=== PATIENT | female | born 1955 | race Caucasian/White ===

== ENCOUNTER 2019-08-15 03:15 | Inpatient (IN) | payer OTHER ==
[~2019-08-15] VITALS: Ht 165.1 cm; Wt 89.0 kg
[2019-08-15] VITALS (8 sets, daily range): BP systolic 117–225; BP diastolic 66–122
--- NOTE | ~2019-08-15 | HC ---
[facility] [place] [address] CONSULTATION Name: TITI FITCH Room #: 249-P ADM IN M.R.#: [id number] Admission: 08/15/19 Attend Phys: Al Alamo Discharge: Date of : 51 Report #: [id number] THIS REPORT FOR: cc: Peyton Garcia MD, Susan L. MD Al-Absi, Ahmed I. MD ~ CC: Al Garcia REASON FOR CONSULTATION: Acute kidney injury post-CABG. REASON FOR THE PRESENTATION: Chest pain and shortness of breath. HISTORY OF PRESENT ILLNESS: A 64-year-old with past medical history of hypertension, diabetes mellitus and hyperlipidemia. She presented to the hospital on 08/11/2019 with chest pain and shortness of breath. She was hypoxemic on her presentation. She had bilateral pulmonary infiltrate and was ruled out for COVID-19. Cardiac catheterization showed 3-vessel disease for which the Cardiothoracic Surgery was consulted. The patient ended up having CABG on 08/22/2019. Creatinine on the patient's presentation was 1.2 and had risen to 2.4 as of yesterday; however, it is beginning to improve and down to 1.4. The patient ran into hypotensive events and episodes on 08/22/2019; however, this seemed to have resolved. PAST MEDICAL HISTORY: 1. Hypertension. 2. Hyperlipidemia. 3. Diabetes mellitus. 4. Status post CABG. ALLERGIES: NORM INHIBITOR AND PENICILLIN. SOCIAL HISTORY: Denies drug or alcohol abuse. MEDICATIONS: 1. Metoprolol. 2. Irbesartan. 3. Triamterene. 4. Metformin. 5. Allopurinol. REVIEW OF SYSTEMS: GENERAL: No fever or chills. CARDIOVASCULAR: As expected, chest pain, post-sternotomy. PULMONARY: No cough or hemoptysis. GASTROINTESTINAL: No nausea or vomiting. GENITOURINARY: No frequency, no urgency. [facility] [address] [place] [address] CONSULTATION Name: TITI FITCH Room #: 249-P [facility].#: [id number] Admission: 08/15/19 Attend Phys: Al Alamo Discharge: Date of : 51 Report #: [id number] MUSCULOSKELETAL: No back pain, no morning stiffness. FAMILY HISTORY: Significant for hypertension. PHYSICAL EXAMINATION: GENERAL: She is alert, oriented, in no apparent distress. VITAL SIGNS: Temperature is 37.1, pulse rate is 77, blood pressure is 110/60. HEAD AND NECK: No jugular venous distention. She has central lines on the right IJ. CARDIOVASCULAR: Regular with no rub detected. CHEST: Decreased air entry bilaterally with chest tube in place. ABDOMEN: Soft, nontender. LOWER EXTREMITIES: No edema. LABORATORY DATA: Reviewed. The patient's creatinine is down to 1.8. Sodium is 133. White blood cell count is 12.3, hemoglobin is 8. Platelets 105. Urine output in the last 24 hours was 1,125. ASSESSMENT AND PLAN: 1. Acute kidney injury, post coronary artery bypass graft. 2. Mild hyponatremia. 3. Diabetes mellitus. 4. Hypertension. 5. Hyperlipidemia. 6. Her acute kidney injury was due to hypotension. This seems to be resolving. She does have hyponatremia and I will reformulate her IV fluids. 7. Creatinine seems to be trending down to where the patient's baseline. 8. Expect full recovery. By: [phone] Lazara Mcginnis MD /nt
[2019-08-15 03:37] LABS: BE(vivo) -4.3 mmol/L (-2 to +3); HCO3 22.8 mmol/L (22.0-26.0); PCO2 49.3 mmHg (35.0-45.0); PO2 236.4 mmHg (80.0-100.0); sO2 99.4 % (92.0-98.0)
[2019-08-15 03:38] LABS: pH 7.282 (7.360-7.450)
[2019-08-15 04:21] LABS: CALCIUM 8.7 mg/dL (8.5-10.1); CREATININE 1.5 mg/dL (0.6-1.0); POTASSIUM 3.9 mmol/L (3.5-5.1)
[2019-08-15 04:29] LABS: TROPONIN-I 0.1 ng/mL (<0.06)
[2019-08-15] MEDS ORDERED: TRIAMTERENE/HCT1 CA1 PO (04:34)
[2019-08-15] MEDS ORDERED: TOPROL XL50 MG PO (04:34)
[2019-08-15] MEDS ORDERED: ATORVASTATIN CA20 MG PO (04:35)
[2019-08-15] MEDS ORDERED: METFORMIN HCL500 MG PO (04:35)
[2019-08-15] MEDS ORDERED: ALLOPURINOL 30300 M1 PO (04:35)
[2019-08-15] MEDS ORDERED: KLOR-CON 10 ER10 MEQ PO (04:35)
[2019-08-15] MEDS ORDERED: IRBESARTAN150 MG PO (04:36)
[2019-08-15] MEDS ORDERED: TRESIBA FL200 UNIT/1 SUBQ (04:36)
[2019-08-15] MEDS ORDERED: OMEPRAZOLE40 MG PO (04:36)
[2019-08-15] MEDS ORDERED: NOVOLOG FL100 UNIT/M SUBQ (04:37)
[2019-08-15 04:44] LABS: ABSOLUTE NEUTROPHILS 12.2 thou/uL (1.4-8.2); BASOPHILS 0.4 % (0.0-2.0); EOSINOPHILS 0.9 % (0.0-3.0); HEMATOCRIT 40.1 % (37.0-47.0); LYMPHOCYTES 11.4 % (24.0-44.0); MCH 29.8 pg (26.0-34.0); MCHC 32.4 g/dL (28.0-37.0); MCV 91.8 fL (80.0-100.0); MONOCYTES 5.8 % (1.0-8.0); PLATELET COUNT 198 thou/uL (150-400); POLYS 81.5 % (36.0-66.0); RBC 4.37 mil/uL (4.20-5.00); RDW 15.2 % (10.5-14.5)
[2019-08-15 11:04] LABS: TROPONIN-I 2.55 ng/mL (<0.06)
[2019-08-15 11:19] LABS: CHOLESTEROL 139 mg/dL (<200); HDL CHOLESTEROL 33 mg/dL (>40); LDL CHOLESTEROL 76 mg/dL (<100); TC:HDL 4.2 Ratio (Not establshd); TRIGLYCERIDE 151 mg/dL (<150); VLDL 30 mg/dL (<40)
--- NOTE | 2019-08-15 11:54 | NUR ---
ASSUMED CARE PT SHIFT CHANGE. ASSESSMENT CHARTED.MEDS GIVEN PER MAR. PT ALERT AND ORIENTED.VSS. PT SOB OCCASIONALLY, O2 SATS WNL ON 4L. TX ORDERS RECEIVED AND ACKNOWLEDGED. REPORT GIVEN TO NURSE ON 3W. PT TRANSFERRED SUCCESSFULLY WITH ALL BELONGINGS.
[2019-08-15 13:15] LABS: URINE BILIRUBIN NEGATIVE (Negative); URINE BLOOD TRACE (Negative); URINE CLARITY CLEAR; URINE COLOR YELLOW; URINE GLUCOSE-RANDOM* NEGATIVE (Negative); URINE KETONES NEGATIVE (Negative); URINE LEUKOCYTES NEGATIVE (Negative); URINE NITRITE NEGATIVE (Negative); URINE PROTEIN (DIPSTICK) 2+ (Negative); URINE SPECIFIC GRAVITY 1.025 (1.005-1.035); URINE UROBILINOGEN 0.2 E.U./dl (0.2-1.0)
[2019-08-15 13:27] LABS: CASTS None Seen /LPF (None Seen); SQUAMOUS 4-10 Moderate /LPF (0-3); URINE RBC 0-2 Rare /HPF (0-2); URINE WBC 0-5 Rare /HPF (0-5)
[2019-08-15 13:28] LABS: CRYSTALS None Seen /LPF (None Seen)
--- NOTE | 2019-08-15 14:34 | NUR ---
ASSESSMENT: CM REVIEWED CHART AND SPOKE WITH PATIENT. PT WAS ADMITTED WITH SOB/CHEST PAIN. PT WAS TRANSFERED FROM TO DUE TO BEING TESTED FOR COVID 19. PT REPORTS SHE LIVES IN A HOUSE WITH HER SIGNIFICANT OTHER. PT REPORTS THAT SHE HAS 2 STEPS TO ENTER WITH NO HANDRAILS. PT REPORTS ONCE INSIDE SHE DOES NOT HAVE ANY STEPS. PT REPORTS BEING FULLY INDEPENDENT WITH ADLS AND AMBULATION. PT IS CURRENTLY ON 4L OF OXYGEN AND DOES NOT HAVE OXYGEN AT HOME. PT DENIES HAVING HH IN THE PAST OR BEING TO A SNF. CM DISCUSSED ROLE. PT DOES NOT ANTICIPATE TO HAVE ANY NEEDS. CM WILL CONTINUE TO MONITOR OXYGEN NEEDS. CM WILL CONTINUE TO FOLLOW TO ASSIST NEEDED.
--- NOTE | 2019-08-15 19:51 | NUR ---
PT NOW DENIES CHEST PAIN...NITRO GTT DC'D AND NITRO PASTE ORDERED...WILL MONITOR..
[2019-08-16 00:06] LABS: GLYCOHEMOGLOBIN (HGB A1C) 9.1 % (4.8-5.6)
[2019-08-16 03:20] VITALS: BP 118/69
[2019-08-16 05:34] LABS: ABSOLUTE NEUTROPHILS 6.8 thou/uL (1.4-8.2); BASOPHILS 0.7 % (0.0-2.0); EOSINOPHILS 1.4 % (0.0-3.0); HEMATOCRIT 34.3 % (37.0-47.0); HEMOGLOBIN 11.5 gm/dL (12.0-15.0); LYMPHOCYTES 27.2 % (24.0-44.0); MCH 30.3 pg (26.0-34.0); MCHC 33.4 g/dL (28.0-37.0); MCV 90.7 fL (80.0-100.0); MONOCYTES 9.7 % (1.0-8.0); PLATELET COUNT 200 thou/uL (150-400); RBC 3.78 mil/uL (4.20-5.00); RDW 15.4 % (10.5-14.5); WBC 11.2 thou/uL (4.0-11.0)
[2019-08-16 05:47] LABS: ALBUMIN 2.9 g/dL (3.4-5.0); CALCIUM 8.7 mg/dL (8.5-10.1); CREATININE 1.4 mg/dL (0.6-1.0); PHOSPHORUS 4.5 mg/dL (2.5-4.9); POTASSIUM 4.2 mmol/L (3.5-5.1)
--- NOTE | 2019-08-16 06:20 | NUR ---
ISOLATION PRECAUTIONS MAINTAINED FOR R/O OF COVID-19. FOLLOW POC WITH NITRO PASTE. DURING ASSESSMENT PT HAD COMPLAINTS OF HEADACHE. GAVE TYLENOL WITH GOOD RESULTS. OVER NEXT TWO SCHEDULED DOSES OF NITRO, TYLENOL GIVEN TO PREVENT FURTHER HEADACHES. PT UP TO BSC. PT STILL ON 4L NASAL CANNULA. VSS, AFEBRILE, AND TELE SHOWS SR WITH A BBB. HOURLY ROUNDING.
[2019-08-16 07:43] VITALS: BP 145/82
[2019-08-16 08:32] VITALS: BP 145/82
--- NOTE | 2019-08-16 10:30 | NUR ---
PT CARE ASSUMED AT 0700. A&Ox4. UP AT NIKHIL BUT STILL WEAK. PT IS DOWN TO 2L AND TOLERATING WELL WITH SATTING AT 94%. RUNNING AT SINUS RYTHM. IV ON L. INFILTRATED WITH REDNESS AND EDEMA. PT IS A DAILY WEIGHT. ACHS WITH COVERAGE NEEDED. ON ELECTROLYTE PROTOCOL. WHEN GIVING NITROPASTE GIVE WITH TYLENOL FOR HEADACHE. CHEST X-RAY WAS DONE SEE RESULTS. PT IS REFUSING SCD'SON DVT PROTOCOL. FLUID RESTRICTION OF 1750ML. PT WILL HAVE ECHO AND ANGIOGRAPH ON MONDAY IF COVID TEST COMES BACK NEGATIVE. CARDIAC ON CASE. PT/OT ON CASE. CALL LIGHT IN REACH. WILL CONTINUE TO MONITOR.
[2019-08-16 11:43] VITALS: BP 145/82
--- NOTE | 2019-08-16 12:00 | NUR ---
SW reviewed chart and spoke [facility] nursing and attending physician. Pt remains in Enhanced Isolation to r/o COVID-19. Pt on 2L of continuous O2. Cardiology is following. Pt to have echo/angio on Monday per cardiology if COVID-19 is negative. Plan is for pt to discharge home when medically stable. LATISHA is following to assist as needed with discharge planning.
[2019-08-16 17:16] VITALS: BP 151/89
[2019-08-16 20:38] VITALS: BP 162/88
[2019-08-17 02:20] VITALS: BP 170/12; BP 170/122
--- NOTE | 2019-08-17 03:04 | NUR ---
ASSUMED CARE FOR PT AT 1845. PT OXYGEN HAS BEEN TITRATED DOWN TO 2L VIA NASAL CANNULA. VSS STABLE, BLOOD PRESSURE MAINTAINING WELL WITHIN NORMS, AND OXYGEN SATURATION IS 92%, REMOVED PIV IN LEFT HAND. NEW ORDERS FROM CARDIOLOGY FOR MONDAY AM ANGIOGRAM WITH INSTRUCTIONS ON MEDICATIONS TO BE GIVEN PRIOR TO PROCEDURE. ORDER ALSO STATES TO HAVE NEW IV INSERTED ON RIGHT ARM WITH A 20GA OR LARGER, WITH INSTRUCTIONS THAT NO IVPB ANTIBIOTICS TO BE GIVEN THROUGH IT PRIOR. WILL CONTINUE TO MONITOR AND ASSESS.
--- NOTE | 2019-08-17 03:08 | NUR ---
DURING HOURLY ROUNDS, AT 0245 PT WAS AWAKENED WITH CHEST PAIN. VITALS TAKEN AND BP 171/121, 18 RESP, 74hr, AND 92% O2. CALLED UTILITY SPRAY OPERATOR AND GOT PRN ORDER FOR MORPHINE 4MG Q4. FOLLOWED UP WITH PT AND SHE STATES CHEST PAIN HAS GONE AWAY, BP 168/71. WILL CONTINUE TO MONITOR.
[2019-08-17 04:27] VITALS: BP 140/78
--- NOTE | 2019-08-17 06:51 | NUR ---
2100-PT MAKING PROGRESS WITH BREATHING AND LESS DEPENDENCE ON NASAL CANUALA. OXYGEN WAS TITRATED TO 2L WITH 93%. VSS, BLOOD PRESSURE MAINTAINING WELL. REMOVED PIV IN LEFT HAND. NEW ORDERS FROM CARDIOLOGY FOR MONDAY AM FOR ANGIOGRAM WITH INSTRUCTIONS ABOUT MEDICATIONS AND TO HAVE NEW IV INSERTED ON RIGHT ARM WITH 20GA OR LARGER. THIS IV IS NOT TO HAVE ANY ANTIBIOTICS GIVEN THROUGH IT. WILL CONTINUE TO MONITOR AND ASSESS.
[2019-08-17 08:30] VITALS: BP 145/77
[2019-08-17 14:50] VITALS: BP 150/69
--- NOTE | 2019-08-17 16:34 | NUR ---
PT. ARRIVED AT THE FLOOR AROUND 1530; AOX4; NO C/O PAIN; EDUCATED ABOUT FALL PREVENTIONS; ST. UNDERSTANDING; SR ON THE MONITOR; ST. ABLE TO AMBULATE WITHOUT ASSISTANCE; REQUESTED TO TAKE A SHOWER; PHYSICIAN PAGED; NO ANSWER BACK YET; PT. REQUESTED TOWELS & FACE RACKS TO WASH UP; NO C/O CP; MONITORING; ASSESSMENT CHARGED; FOLLOWING POC; WILL PASS ON REPORT;
--- NOTE | 2019-08-17 17:33 | NUR ---
ASSUMED CARE 0700. ALERT X4 FROM HOME. DENIES CHEST PAIN, DENIES SOB, NSR ON TELE. NEG COVID-19 RESULTS. UP AB NIKHIL TO BATHROOM NO BM NOTED VOID 800CC PRIOR TO MOVING TO 208. PROGRESSING TOWARDS GOALS. REPORT GIVEN TO LAKEISHA EMMANUEL RN.
[2019-08-17 20:32] VITALS: BP 146/73
[2019-08-18 04:30] VITALS: BP 143/72
--- NOTE | 2019-08-18 05:07 | NUR ---
ASSESSMENT DOCUMENTED.PT BEEN RESTING IN NO ACUTE DISTRESS.A/OX4.VSS.NO C/O CHEST PAIN OR ANY DISTRESS.NSR ON MONITOR.POC ISTO HAVE CARDIAC ROSANNE IN AM.WILL CONT TO MONITOR PER POC.
[2019-08-18 05:29] LABS: CALCIUM 9.2 mg/dL (8.5-10.1); CREATININE 1.3 mg/dL (0.6-1.0); PHOSPHORUS 4.5 mg/dL (2.5-4.9); POTASSIUM 4.2 mmol/L (3.5-5.1)
[2019-08-18 05:32] LABS: TROPONIN-I 4.5 ng/mL (<0.06)
[2019-08-18 07:52] VITALS: BP 161/72
[2019-08-18 11:29] VITALS: BP 146/63
[2019-08-18 15:24] VITALS: BP 137/81
--- NOTE | 2019-08-18 18:44 | NUR ---
ASSESSMENT DOCUMENTED, DENIES ANY CP OR DISCOMFORT. VSS AND WILL CONTIUE TO MONITOR.
[2019-08-18 19:54] VITALS: BP 165/71
[2019-08-19] VITALS (13 sets, daily range): BP systolic 131–172; BP diastolic 58–79
[2019-08-19 05:14] LABS: HEMATOCRIT 34.3 % (37.0-47.0); HEMOGLOBIN 11.5 gm/dL (12.0-15.0); MCH 30.5 pg (26.0-34.0); MCHC 33.6 g/dL (28.0-37.0); MCV 90.9 fL (80.0-100.0); RBC 3.78 mil/uL (4.20-5.00); RDW 15.1 % (10.5-14.5); WBC 8.5 thou/uL (4.0-11.0)
[2019-08-19 05:24] LABS: CREATININE 1.2 mg/dL (0.6-1.0); POTASSIUM 3.7 mmol/L (3.5-5.1)
--- NOTE | 2019-08-19 06:01 | NUR ---
ASSESSMENTS CHARTED, MEDS GIVEN CHARTED. PATIENT TRANSFERED FROM 3RD FLOOR AFTER INGRAM TEST CAME BACK NEGATIVE. CHEST PAIN ALLEVIATED WITH NITRO PASTE. IS SCHEDULED FOR [facility] THIS MORNING. DAY SHIFT NURSE REMOVED NITRO PASTE AT END OF SHIFT. AROUND 2230 PATIENT C/O CHEST PAIN/PRESSURE 11/28. REPLACED NITRO PATCH BLOOD PRESSURE WAS 196/87, BLOOD PRESSURE CAME DOWN AND PRESSURE WENT DOWN. SPOKE WITH SENIOR SALES MANAGER WHO GAVE ORDER IF BP WENT BACK UP OVER 180 SBP. PATIENT UP AT NIKHIL IN ROOM. PLAN OF CARE IS TO VISIT [facility], HAVE ECHO, CONTINUE LASIX THERAPY AND ANTIBIOTIC THERAPY.
--- NOTE | 2019-08-19 09:29 | CATHLAB ---
[facility] [place] [address] INVASIVE PROCEDURE REPORT Name: TITI FITCH Room #: 208-P ADM IN M.R.#: [id number] Admission: 08/15/19 Attend Phys: Al Long Cally Discharge: Date of : 51 Report #: [id number] THIS REPORT FOR: cc: Peyton Garcia MD, Susan L. MD Lundgren, Craig H. MD [facility] ~ APPROVED REPORT Study performed: 08/19/2019 07:23:47 Patient Details Patient Status: In-Patient Room #: The patient is a 64 year-old female Event Personnel Cb Alcaraz Machine Plate Stacker, Lucille Thao RN RN, Kadi Gtz RTR, Norberto López Roberta Monitor Procedures Performed Art Access - R femoral artery* Left Heart Cath w/or w/o Coronaries [id number] [facility] Hemostasis w/ Mynx 37059 Initial Mod Sed Same Phys/QHP Gr5y [id number] 87471 Mod Sed Same Phys/QHP Ea [id number] Indication Chest pain Procedure Narrative The Right Groin^ was infiltrated with 1% Lidocaine subcutaneous anesthesia. A PINNACLE 6FR Sheath #[id number] sheath was inserted into the RFA 6F^. Coronary angiography was performed using coronary diagnostic catheters. The right coronary system was accessed and visualized with a JR4 catheter. The left coronary system was accessed and visualized with a JL4 catheter. Left ventriculogram was performed in 30 degree projection. NO LV WAS PERFORMED Intraoperative Conscious Sedation Sedation start time: 755 Case end Time: 829 Fentanyl --50 mcg Versed mg Fluoro Time: 1.16 minutes Dose: DAP 3609.10 cGycm2 463 mGy Contrast Type and Amount: Omnipaque 80 ml [facility] [place] [address] [place] [address] INVASIVE PROCEDURE REPORT Name: FITCHBRENNACARISSA Room #: 208-[facility] IN ..#: [id number] Admission: 08/15/19 Attend Phys: Al Purcell Discharge: Date of : 51 Report #: [id number] Coronary Angiography The patient's coronary anatomy is co- dominant. Diagnostic Cath Left Main 20 to 30% left main plaquing LAD 70% ostial LAD stenosis. 95% proximal, cleft-like stenosis. 75% mid LAD stenosis with moderate diffuse plaquing distally Diagonal 1 Large first diagonal branch with severe proximal stenosis 85% OM1 Mild plaquing OM2 99% proximal OM 2 stenosis L PDA Moderate proximal posterior descending branch stenosis Right Coronary 90% mid right coronary stenosis. 85% distal right coronary stenosis Complex collateralization of the distal right coronary from the codominant circumflex Left Ventriculography Left Ventriculography was not performed. Hemodynamics The aortic pressure is 198/87 mmHg with a mean of 97 mmHg. The left ventricular pressure is 208/10 mmHg with a mean of mmHg. The left ventricular end diastolic pressure is 32 mmHg. Conclusion 1. No LV gram performed. Elevated left heart pressures 2. Mild left main plaquing 3. Severe multivessel coronary disease Recommendations CABG <ELECTRONICALLY SIGNED> By: Cb Alcaraz MD, FACC 08/19/19926 6 6 Cb Alcaraz MD, FACC /INF
--- NOTE | 2019-08-19 10:30 | 2DMMODE ---
[facility] [place] [address] 2 D/M-MODE ECHOCARDIOGRAM Name: TITI FITCH Room #: 208-P ADM IN M.R.#: [id number] Admission: 08/15/19 Attend Phys: Al Alamo Discharge: Date of : 51 Report #: [id number] THIS REPORT FOR: cc: Peyton Garcia MD,Cb Reyes MD, MD [facility] ~ APPROVED REPORT Study performed: 08/19/2019 09:38:11 EXAM: Comprehensive 2D, Doppler, and color-flow Echocardiogram Patient Location: Bedside Room #: 208 Status: routine BSA: 1.93 HR: 85 bpm BP: 164/69 mmHg Rhythm: NSR Other Information Study Quality: Adequate Technically limited study due to inability to position patient (post cath). Indications Congestive Heart Failure Diabetes CAD Hypertension/HDD HLD 2D Dimensions RVDd: 28.25 mm IVSd: 12.44 (7-11mm) LVOT Diam: 20.94 (18-24mm) LVDd: 46.55 mm PWd: 12.36 (7-11mm) Ascending Ao: 28.70 (22-36mm) LVDs: 33.66 (25-40mm) Aortic Root: 28.91 mm IVC: 20.00 mm Volumes Left Atrial Volume (Systole) Single Plane 4CH: 77.50 mL Single Plane 2CH: 42.39 mL LA ESV Index: 31.00 mL/m2 [facility] [address] [place] [address] 2 D/M-MODE ECHOCARDIOGRAM Name: JODY FITCHIan Room #: 208-P [facility] IN M.R.#: [id number] Admission: 08/15/19 Attend Phys: Al Purcell Discharge: Date of : 51 Report #: [id number] Aortic Valve AoV Peak Cortes.: 1.79 m/s AO Peak Gr.: 12.78 mmHg LVOT Max P.78 mmHg LVOT Max V: 1.09 m/s JETT Vmax: 2.11 cm2 Mitral Valve E/A Ratio: 1.2 MV Decel. Time: 122.83 ms MV E Max Cortes.: 1.07 m/s MV A Cortes.: 0.88 m/s MV PHT: 35.62 ms IVRT: 86.51 ms Pulmonary Valve PV Peak Cortes.: 1.13 m/s PV Peak Gr.: 5.14 mmHg Pulmonary Vein P Vein S: 0.69 m/s P Vein A: 0.33 m/s P Vein D: 0.41 m/s P Vein A Dur.: 95.2 msec P Vein S/D Ratio: 1.68 Tricuspid Valve RAP Estimate: 5.00 mmHg Left Ventricle The left ventricle is normal size. There is normal LV segmental wall motion. Mild concentric left ventricular hypertrophy. Left ventricular systolic function is at the lower limits of normal LVEF is 50%. Moderate diastolic dysfunction is present (pseudonormal filling). Right Ventricle The right ventricle is normal size. The right ventricular systolic function is normal. Atria The left atrium size is normal. The right atrium size is normal. Aortic Valve The aortic valve is mildly sclerotic. No aortic regurgitation is present. There is no aortic valvular stenosis. Mitral Valve The mitral valve is normal in structure. There is no mitral valve [facility] [address] [place] [address] 2 D/M-MODE ECHOCARDIOGRAM Name: JODY FITCHIan Room #: 208-P ADM IN M.R.#: [id number] Admission: 08/15/19 Attend Phys: Al Purcell Discharge: Date of : 51 Report #: [id number] regurgitation noted. No evidence of mitral valve stenosis. Tricuspid Valve The tricuspid valve is normal in structure. There is no tricuspid valve regurgitation noted. Unable to assess PA pressure. Pulmonic Valve The pulmonary valve is normal in structure. There is no pulmonic valvular regurgitation. Great Vessels The aortic root is normal in size. IVC is normal in size and collapses >50% with inspiration. Pericardium There is no pericardial effusion. <Conclusion> Left ventricular systolic function is at the lower limits of normal LVEF is 50%. Moderate diastolic dysfunction is present (pseudonormal filling). The aortic valve is mildly sclerotic. No aortic regurgitation or stenosis The mitral valve is normal in structure. No mitral valve regurgitation. Unable to assess pulmonary artery pressure. There is no pericardial effusion. <ELECTRONICALLY SIGNED> By: Cb Alcaraz MD, FACC 08/19/19 1028 1028 1028 Cb Alcaraz MD, FACC /INF
[2019-08-19 13:31] LABS: ABSOLUTE NEUTROPHILS 5.9 thou/uL (1.4-8.2); BASOPHILS 0.5 % (0.0-2.0); EOSINOPHILS 1.7 % (0.0-3.0); HEMATOCRIT 38.7 % (37.0-47.0); HEMOGLOBIN 12.7 gm/dL (12.0-15.0); LYMPHOCYTES 19.1 % (24.0-44.0); MCH 29.8 pg (26.0-34.0); MCHC 32.8 g/dL (28.0-37.0); MCV 90.8 fL (80.0-100.0); MONOCYTES 8.3 % (1.0-8.0); PLATELET COUNT 233 thou/uL (150-400); POLYS 70.4 % (36.0-66.0); RBC 4.26 mil/uL (4.20-5.00); RDW 15.2 % (10.5-14.5); WBC 8.3 thou/uL (4.0-11.0)
[2019-08-19 13:35] LABS: CALCIUM 9.5 mg/dL (8.5-10.1); CREATININE 1.2 mg/dL (0.6-1.0); POTASSIUM 3.7 mmol/L (3.5-5.1)
--- NOTE | 2019-08-19 13:39 | NUR ---
Patient with consult for Dr Garcia. Not medically stable for dc. Cont plan for home at dc. casemgt following
[2019-08-19 13:41] LABS: ALBUMIN 3.3 g/dL (3.4-5.0); PROTIME 10.7 Seconds (9.3-11.4); TOTAL BILIRUBIN 0.7 mg/dL (<0.1-1.0); TOTAL PROTEIN 7.1 g/dL (6.4-8.2)
--- NOTE | 2019-08-19 18:16 | NUR ---
ASSESSMENT DOCUMENTED, ALERT AND ORIENTED X4. VSS AND AFEBRILE. DENIES CP ,NITRO PLACED PER ORDERS, AND MEDICATED WITH TYLENOL FOR HEADACHE. CATHED TO DAY, POST CARDIAC CATH ASSESSMENT WITH VS DONE, PATIENT WAS EMOTIONAL POST CATH FINDINGS, AND VISITED BY CARDIAC REHAB NURSE. S/B DR LIMON AND HIS TEAM, AND PATIENT CONCERNS AND QUESTIONS ADDRESSED BY THE TEAM. AND WILL CONTINUE WITH POC
[2019-08-19 18:32] LABS: URINE BILIRUBIN NEGATIVE (Negative); URINE BLOOD NEGATIVE (Negative); URINE CLARITY CLEAR; URINE COLOR YELLOW; URINE GLUCOSE-RANDOM* NEGATIVE (Negative); URINE KETONES NEGATIVE (Negative); URINE LEUKOCYTES NEGATIVE (Negative); URINE NITRITE NEGATIVE (Negative); URINE PROTEIN (DIPSTICK) 2+ (Negative); URINE UROBILINOGEN 0.2 E.U./dl (0.2-1.0)
[2019-08-19 18:39] LABS: SQUAMOUS 0-3 Few /LPF (0-3)
[2019-08-19 18:40] LABS: BACTERIA None Seen /HPF (None Seen); CASTS None Seen /LPF (None Seen); CRYSTALS None Seen /LPF (None Seen); URINE RBC None Seen /HPF (0-2); URINE WBC 0-5 Rare /HPF (0-5)
[2019-08-20 01:07] LABS: GLYCOHEMOGLOBIN (HGB A1C) 8.9 % (4.8-5.6)
--- NOTE | 2019-08-20 03:37 | NUR ---
A/O X 4.UP INDEPENDENTLY.DENIES PAIN AND SOB.RIGHT GROIN DRESSING C/D/I.DENIES ANY CONCERNS.MONITOR SHOWS SR.POC CONTINUED.
[2019-08-20 04:25] VITALS: BP 160/64
[2019-08-20 08:45] VITALS: BP 157/76
[2019-08-20 08:45] LABS: CALCIUM 9.6 mg/dL (8.5-10.1); CREATININE 1.2 mg/dL (0.6-1.0); POTASSIUM 3.9 mmol/L (3.5-5.1)
[2019-08-20 11:35] VITALS: BP 133/55
[2019-08-20 16:25] VITALS: BP 133/58
--- NOTE | 2019-08-20 17:59 | NUR ---
ASSESSMENT DOCUMENTED, DENIES ANY CP AND WALKED THE HALLWAYS X2. AND WILL CONTINUE WITH POC.
[2019-08-20 20:32] VITALS: BP 132/56
[2019-08-21 00:42] VITALS: BP 148/72
[2019-08-21 05:05] VITALS: BP 135/63
--- NOTE | 2019-08-21 05:10 | NUR ---
ASSESSMENTS CHARTED, MEDS GIVEN CHARTED. PATIENT RESTING IN ROOM DURING SHIFT. IS WAITING UNTIL MONDAY FOR CABG. MAINTAINING NITRO PASTE TO PREVENT CHEST PAIN. ON 1 LITER NASAL CANULA. ON LASIX THERAPY. EDEMA HAS RESOLVED IN LOWER EXTREMITIES. CHEST XRAY SHOWED SIGNIFICANT IMPROVEMENT IN INTERSTITIAL INFILTRATES. UP AT NIKHIL IN ROOM. FALL PRECAUTIONS IN PLACE. DENIED PAIN DURING SHIFT.
[2019-08-21 06:17] LABS: CALCIUM 9.2 mg/dL (8.5-10.1); CREATININE 1.2 mg/dL (0.6-1.0); MAGNESIUM 1.7 mg/dL (1.8-2.4); POTASSIUM 3.7 mmol/L (3.5-5.1)
[2019-08-21 07:30] VITALS: BP 132/62
[2019-08-21 11:30] VITALS: BP 134/59
--- NOTE | 2019-08-21 13:46 | NUR ---
Tenative plan for CABG in am. Casemgt followinf for dc planning.
--- NOTE | 2019-08-21 14:48 | NUR ---
ASSESSMENT CHARTED. PT ALERT AND ORIENTED. VSS. DENIED HAVING PAIN OR DISCOMFORT. UP IN THE CHAIR THIS AM. SHOWERED THIS MORNING. NEW ORDERS NOTED. NPO AFTER MIDNIGHT FOR CABG IN AM. CONSENT SIGNED. WILL CONTINUE TO MONITOR.
[2019-08-21 16:30] VITALS: BP 138/63
[2019-08-21 20:13] VITALS: BP 148/62
[2019-08-22] VITALS (8 sets, daily range): BP systolic 89–186; BP diastolic 53–80
--- NOTE | 2019-08-22 04:10 | NUR ---
ASSESSMENT DOCUMENTED.PT BEEN RESTING IN NO ACUTE DISTRESS.A/OX4.VSS.PT TO HAVE CABG THIS AM.DENIES ANY NEEDS.NPO AFTER MIDNOC.PREOPE CHECKLIST INITIATED.SHOWERS PER ORDERS.PT DENIES PAIN OR ANY DISTRESS AT THIS TIME.I WILL CONT TO MONITOR PER POC.
[2019-08-22 05:40] LABS: CALCIUM 9.2 mg/dL (8.5-10.1); CREATININE 1.2 mg/dL (0.6-1.0); MAGNESIUM 1.8 mg/dL (1.8-2.4); POTASSIUM 3.7 mmol/L (3.5-5.1)
[2019-08-22 12:41] LABS: HEMOGLOBIN 12.2 gm/dL (12.0-15.0); MCH 30.5 pg (26.0-34.0); MCHC 33.1 g/dL (28.0-37.0); MCV 92.2 fL (80.0-100.0); RBC 4.01 mil/uL (4.20-5.00); RDW 15.1 % (10.5-14.5); WBC 10.6 thou/uL (4.0-11.0)
[2019-08-22 12:52] LABS: APTT 28.2 Seconds (24.5-32.8); FIBRINOGEN 505.1 mg/dL (210-360); PROTIME 10.5 Seconds (9.3-11.4)
[2019-08-22 13:26] LABS: HEMATOCRIT 23.7 % (37.0-47.0); MCH 30.1 pg (26.0-34.0); MCHC 32.8 g/dL (28.0-37.0); MCV 91.7 fL (80.0-100.0); RBC 2.59 mil/uL (4.20-5.00); RDW 15.1 % (10.5-14.5); WBC 19.3 thou/uL (4.0-11.0)
[2019-08-22 13:29] LABS: HEMOGLOBIN 7.8 gm/dL (12.0-15.0)
--- NOTE | 2019-08-22 13:36 | NUR ---
Nutrition: Consult received. Pt having CABG today. RD will followup to determine education needs when closer to D/C.
[2019-08-22 13:38] LABS: APTT 26.6 Seconds (24.5-32.8); INR 1.4
[2019-08-22 14:25] LABS: POC BE 3 mmol/L (-2.0 to +3.0); POC CA IONIZED 4.6 mg/dL (4.5-5.3); POC GLUCOSE 224 mg/dL (70-99); POC HCO3 26.4 mmol/L (22.0-26.0); POC HEMOGLOBIN 11.2 g/dL (12.0-15.0); POC POTASSIUM 4.5 mmol/L (3.5-5.1); POC SODIUM 138 mmol/L (136-145); POC pCO2 37.1 mmHg (35.0-45.0); POC pH 7.461 (7.360-7.450)
[2019-08-22 14:25] LABS: POC BE -3 mmol/L (-2.0 to +3.0); POC CA IONIZED 4.5 mg/dL (4.5-5.3); POC GLUCOSE 175 mg/dL (70-99); POC HCO3 21.6 mmol/L (22.0-26.0); POC HEMOGLOBIN 9.2 g/dL (12.0-15.0); POC POTASSIUM 3.7 mmol/L (3.5-5.1); POC SODIUM 141 mmol/L (136-145); POC pCO2 33.1 mmHg (35.0-45.0); POC pH 7.424 (7.360-7.450)
[2019-08-22 14:25] LABS: POC BE 4 mmol/L (-2.0 to +3.0); POC CA IONIZED 3.9 mg/dL (4.5-5.3); POC GLUCOSE 174 mg/dL (70-99); POC HCO3 27.3 mmol/L (22.0-26.0); POC HEMOGLOBIN 8.5 g/dL (12.0-15.0); POC POTASSIUM 4.4 mmol/L (3.5-5.1); POC SODIUM 140 mmol/L (136-145); POC pCO2 33.3 mmHg (35.0-45.0); POC pH 7.521 (7.360-7.450)
[2019-08-22 14:25] LABS: POC BE 2 mmol/L (-2.0 to +3.0); POC CA IONIZED 4.4 mg/dL (4.5-5.3); POC GLUCOSE 178 mg/dL (70-99); POC HCO3 26.4 mmol/L (22.0-26.0); POC HEMOGLOBIN 8.5 g/dL (12.0-15.0); POC SODIUM 140 mmol/L (136-145); POC pCO2 39.4 mmHg (35.0-45.0); POC pH 7.434 (7.360-7.450)
[2019-08-22 14:25] LABS: POC BE -2 mmol/L (-2.0 to +3.0); POC CA IONIZED 4.3 mg/dL (4.5-5.3); POC GLUCOSE 189 mg/dL (70-99); POC HCO3 23.2 mmol/L (22.0-26.0); POC HEMOGLOBIN 7.5 g/dL (12.0-15.0); POC POTASSIUM 3.6 mmol/L (3.5-5.1); POC SODIUM 138 mmol/L (136-145); POC pCO2 38.1 mmHg (35.0-45.0); POC pH 7.392 (7.360-7.450)
[2019-08-22 14:25] LABS: POC BE 3 mmol/L (-2.0 to +3.0); POC CA IONIZED 4.2 mg/dL (4.5-5.3); POC GLUCOSE 178 mg/dL (70-99); POC HCO3 27.3 mmol/L (22.0-26.0); POC HEMOGLOBIN 7.8 g/dL (12.0-15.0); POC POTASSIUM 3.9 mmol/L (3.5-5.1); POC SODIUM 140 mmol/L (136-145); POC pCO2 40.8 mmHg (35.0-45.0); POC pH 7.433 (7.360-7.450)
[2019-08-22 14:25] LABS: POC BE 2 mmol/L (-2.0 to +3.0); POC CA IONIZED 4.3 mg/dL (4.5-5.3); POC GLUCOSE 191 mg/dL (70-99); POC HCO3 25.4 mmol/L (22.0-26.0); POC HEMOGLOBIN 9.5 g/dL (12.0-15.0); POC POTASSIUM 4.2 mmol/L (3.5-5.1); POC SODIUM 138 mmol/L (136-145); POC pCO2 35.8 mmHg (35.0-45.0); POC pH 7.459 (7.360-7.450)
[2019-08-22 14:25] LABS: POC BE 1 mmol/L (-2.0 to +3.0); POC CA IONIZED 4.2 mg/dL (4.5-5.3); POC GLUCOSE 182 mg/dL (70-99); POC HCO3 26.5 mmol/L (22.0-26.0); POC HEMOGLOBIN 8.2 g/dL (12.0-15.0); POC POTASSIUM 4.1 mmol/L (3.5-5.1); POC SODIUM 139 mmol/L (136-145); POC pH 7.359 (7.360-7.450)
[2019-08-22 14:25] LABS: POC BE 2 mmol/L (-2.0 to +3.0); POC CA IONIZED 4.3 mg/dL (4.5-5.3); POC GLUCOSE 177 mg/dL (70-99); POC HCO3 26.9 mmol/L (22.0-26.0); POC HEMOGLOBIN 6.8 g/dL (12.0-15.0); POC POTASSIUM 4.5 mmol/L (3.5-5.1); POC SODIUM 138 mmol/L (136-145); POC pCO2 45.3 mmHg (35.0-45.0); POC pH 7.382 (7.360-7.450)
--- NOTE | 2019-08-22 14:47 | NUR ---
pt moved to icu post cabg x 5 today. noted from chart pt was independent prior to the hospital, lives with her spouse, using oxygen here, no home o2 in past. will cont following as needed for dc needs.
[2019-08-22 15:18] LABS: HEMATOCRIT 29.1 % (37.0-47.0); HEMOGLOBIN 9.7 gm/dL (12.0-15.0); MCH 30.4 pg (26.0-34.0); MCHC 33.3 g/dL (28.0-37.0); MCV 91.4 fL (80.0-100.0); RBC 3.19 mil/uL (4.20-5.00); WBC 19.1 thou/uL (4.0-11.0)
[2019-08-22 15:25] LABS: CALCIUM 8.3 mg/dL (8.5-10.1); CREATININE 1.4 mg/dL (0.6-1.0); MAGNESIUM 2.4 mg/dL (1.8-2.4); POTASSIUM 3.8 mmol/L (3.5-5.1)
[2019-08-22 15:26] LABS: BE(vivo) -5.3 mmol/L (-2 to +3); HCO3 20.2 mmol/L (22.0-26.0); PCO2 39.2 mmHg (35.0-45.0); PO2 81.5 mmHg (80.0-100.0); sO2 95.3 % (92.0-98.0)
--- NOTE | 2019-08-22 19:21 | NUR ---
PT ARRIVED TO UNIT POST CABG AT 1445. ANESTHESIA, OR NURSE, CTS PHYSICIAN ARNULFO AND DR. LIMON PRESENT UPON ARRIVAL. LABILE BLOOD PRESSURES REPORTED FROM ANESTHESIA, 1 BOTTLE OF ALBUMIN GIVEN. UPON ARRIVAL. PLACED ON MONITOR. NUMBERS VERIFIED WITH OR TEAM. PLACED ON VENT BY RESPIATORY. INSULIN GTT INFUSING. INITAL LABS SENT. PT REMAINS ON INSULIN GTT. REMAINED HEMODYNAMICALLY STABLE THROUGH OUT SHIFT. ARRIVED ON NO SEDATION, HAS BEEN SLOWLY AWAKENING. OPENS EYES, NODS HEAD, FOLLOWS COMMANDS, JUST REMAINS SLIGHTY DROWSY. ENCOURAGING TO WAKE UP TO PROGRESS WITH EXTUBATION. SEE I/O DOCUMENTATION FOR CHEST TUBE DRAINIAGE AND URINE OUTPUT. FAMILY UDAPTED THROUGH OUT SHIFT.
--- NOTE | 2019-08-22 19:34 | NUR ---
Care assumed at 1900. Pt nods yes to back being uncomfortable but felt more uncomfortable when turned to side. Pt still drowsy, arouses easily to verbal stimuli, spontaneously moves all extremities and also to command. Unable to lift head from bed yet. Monitor sinus rhythm. Urine output adequate. Sanguinous drainage from mediastinal tubes and left plural tube within parameters. All chest tubes patent without air leak or crepitus,
--- NOTE | 2019-08-22 19:49 | O ---
[facility] [place] [address] OPERATIVE REPORT Name: TITI FITCH Room #: 249-P ADM IN M.R.#: [id number] Admission: 08/15/19 Attend Phys: Al Alamo Discharge: Date of : 51 Report #: [id number] THIS REPORT FOR: cc: Peyton Garcia MD, Susan L. MD Forman, John M. MD ~ CC: Al Garcia DATE OF SERVICE: 08/22/2019 PREOPERATIVE DIAGNOSIS: Coronary artery disease. POSTOPERATIVE DIAGNOSIS: Coronary artery disease. OPERATION PERFORMED: Coronary artery bypass x 5 including left internal mammary artery to left anterior descending artery, saphenous vein to diagonal and first marginal with a separate Y branch to the second marginal and saphenous vein to posterior descending (the more distal) and endoscopic harvest, left greater saphenous vein. SURGEON: Simone Vale MD RAG INSPECTOR: ALEC Tinoco and ALEC Fink ANESTHESIA: General. INDICATIONS: The patient is a 64-year-old seen for Dr. Alcaraz. The patient was admitted with pulmonary edema and throws of cardiac ischemia. The patient was found to have severe 3-vessel coronary artery disease. When the pulmonary edema had resolved, the patient was taken to the Operating Room for definitive treatment. FINDINGS AND TECHNIQUE: After general anesthesia was established, saphenous vein was harvested using an endoscopic approach and prepared for use as a conduit. Exposure was obtained through median sternotomy. Left internal mammary artery was harvested from chest wall. Pericardial well was made. Cannulation sutures were placed. Heparin was given. Aorta was cannulated. Right atrium was cannulated. Cardioplegia needle was positioned in the aortic root. Retrograde cardioplegic catheter was placed in the coronary sinus. Cardiopulmonary bypass was established. Aorta was cross clamped. Antegrade and retrograde cardioplegia were given. Ice was poured in the pericardial well. Heart was stopped. [facility] [address] [place] [address] OPERATIVE REPORT Name: TITI FITCH Room #: 249-P [facility] IN M.R.#: [id number] Admission: 08/15/19 Attend Phys: Al Alamo Discharge: Date of : 51 Report #: [id number] During electromechanical arrest, the distal anastomoses were performed and end-to-side anastomosis was made between vein and the posterior descending artery. There were actually 2 posterior descending arteries were very close together and interestingly enough, they filled from both the right and the left coronary shots. The bypass was done to the more distal from the perspective of the right coronary and as this seemed to be larger vessel and as I said, the two vessels were quite close together. Cold cardioplegia was given. A separate segment of vein was sewn in end-to-side fashion in the first marginal. Cold cardioplegia was given. The same segment of vein was sewn in kgps-[id number] fashion to the diagonal artery. Cold cardioplegia was given. A separate length of vein was sewn to the second marginal artery. Cold cardioplegia was given. Left internal mammary artery was sewn in end-to-side fashion to the left anterior descending artery. The LAD was diffusely diseased and I felt that the best spot was quite distal and this was where we made the anastomosis. The anastomosis was checked with the temperature technique. Cold cardioplegia was given. Two proximal anastomoses were performed. When these were complete, warm retrograde cardioplegia was given, followed by warm continuous blood to the coronary sinus. When this infusion was complete, the crossclamp was removed, de-airing maneuvers were performed. The anastomoses were inspected and found to be satisfactory. The proximal end of the vein going to the second marginal was then sewn to the side of the vein to the diagonal and first marginal. The anastomoses were all inspected and found to be satisfactory. Chest tubes and pacing wires were placed. A marker was placed around the proximal anastomoses. When the patient was warmed, she was weaned from cardiopulmonary bypass. Venous cannula was removed. Protamine was given, the aortic cannula was removed. Flows were measured in the bypass grafts. When hemostasis was satisfactory, chest was closed in the usual fashion. The patient was taken to the Intensive Care Unit in good condition having tolerated the procedure well. All counts reported as correct. <ELECTRONICALLY SIGNED> By: Simone Vale MD 08/22/19 1949 164 712 Simone Vale MD /nt
--- NOTE | 2019-08-22 19:49 | HC ---
[facility] [place] [address] CONSULTATION Name: TITI FITCH Room #: 249-P ADM IN M.R.#: [id number] Admission: 08/15/19 Attend Phys: Al Alamo Discharge: Date of : 51 Report #: [id number] THIS REPORT FOR: cc: Peyton Garcia MD, Susan L. MD Forman, John M. MD ~ CC: Al Garcia DATE OF SERVICE: 08/19/2019 HISTORY OF PRESENT ILLNESS: We were asked by Dr. Alcaraz to see the patient. The patient is a 63-year-old admitted 08/14 with unstable angina. The patient had a midsternal chest pain that radiated both right and left and to the left arm in the middle of the night. The patient states that she has not had that problem before, but on retrospect has had some indigestion that has mimicked this discomfort. The patient was admitted and had important shortness of breath. The patient also stated that she could not breathe during her initial evaluation. Chest x-ray showed bilateral pulmonary infiltrates and the patient was tested for COVID, but has been seen to be COVID negative. The patient was diagnosed as having flash pulmonary edema with hypertensive urgency and was treated. Subsequently, the patient has had relief of her shortness of breath. Cardiac echo was done that shows an ejection fraction of 55% with moderate diastolic dysfunction, sclerotic aortic valve. No important mitral incompetence was seen. Cardiac catheterization was done today that shows 3-vessel disease in a codominant system. PAST MEDICAL HISTORY: Significant for hypertension, diabetes mellitus and elevated cholesterol. MEDICATIONS AT HOME: Includes hydrochlorothiazide, triamterene, metoprolol, metformin, allopurinol, atorvastatin, potassium, irbesartan, omeprazole, insulin. ALLERGIES: The patient seems to be ALLERGIC TO NORM INHIBITORS AND PENICILLINS. SOCIAL HISTORY: The patient is retired from retail work. She lives in [place] with a partner who has important COPD, they have been self-quarantining for COVID. The patient is a former smoker, but quit years ago. REVIEW OF SYSTEMS: Generally negative. GENERAL: No fever, chills, weight change. [facility] [address] [place] [address] CONSULTATION Name: TITI FITCH Room #: 249-P [facility] IN .R.#: [id number] Admission: 08/15/19 Attend Phys: Al Alamo Discharge: Date of : 51 Report #: [id number] EYES: Wears glasses. HEENT: No headaches. No ear pain. No sore throat. RESPIRATORY: Short of breath on admission. CARDIAC: Chest pain leading to admission, chest pain at rest. No palpitations. GASTROINTESTINAL: Denies nausea, vomiting, diarrhea, or blood. GENITOURINARY: Denies urgency, frequency, or blood. MUSCULOSKELETAL: Denies current bone or joint problems. SKIN: Denies rash or infection. NEUROLOGIC: Denies motor or sensory dysfunction. ENDOCRINE: Denies goiter, tremor. HEMATOLOGIC: Denies bruisability or bleeding. PSYCHIATRIC: Denies depression. PHYSICAL EXAMINATION: VITAL SIGNS: Blood pressure 153/66, heart rate 87, respiratory rate 16, temperature 97.7, O2 sat 91 on 2 liters. HEENT: No scleral icterus, no arcus. Pupils are round, equal. NECK: No mass. I hear no bruit. CHEST: Rales in the bases bilaterally. HEART: Rhythm regular, no murmur. ABDOMEN: Soft. No mass or tenderness. EXTREMITIES: Trace edema, 2+ dorsalis pedis and posterior tibial pulses. SKIN: No rash or infection. NEUROLOGIC: No motor or sensory dysfunction. MUSCULOSKELETAL: No bone or joint asymmetry or deformity noted. PSYCHIATRIC: Oriented x 3, pleasant, and shows insight into problem. ASSESSMENT AND PLAN: I reviewed the risks and details of surgery and discussed options and alternatives, risks of coronary artery bypass surgery involved, but are not limited to bleeding, infection, anesthesia risks, heart and lung problems, stroke and . Options and alternatives were reviewed. The patient understands all of this and wishes to proceed. We will try to arrange surgery for later this week after following chest x-ray. Thank you for the consult. <ELECTRONICALLY SIGNED> By: Simone Vale MD 08/22/19 1949 [id number] 1440 Simone Vale MD /nt
[2019-08-22 20:06] LABS: BE(vivo) -6.2 mmol/L (-2 to +3); HCO3 17.8 mmol/L (22.0-26.0); PO2 84.5 mmHg (80.0-100.0); pH 7.391 (7.360-7.450); sO2 96.4 % (92.0-98.0)
[2019-08-22 20:40] LABS: BE(vivo) -5.9 mmol/L (-2 to +3); HCO3 21.1 mmol/L (22.0-26.0); PCO2 48.6 mmHg (35.0-45.0); PO2 93.8 mmHg (80.0-100.0)
[2019-08-22 20:41] LABS: pH 7.256 (7.360-7.450)
--- NOTE | 2019-08-22 20:48 | NUR ---
Pt on CPAP trial for 30 minutes. Tachypnic up to 36, BP and heart rate stable. Gave pt 25 mcg of Fentanyl during trial to ease comfort of breathing, however it made pt too sleepy. Post CPAP ABG not within parameters for extubation; will monitor and try again later after Fentanyl worn off.
--- NOTE | 2019-08-22 23:14 | NUR ---
Second CPAP trial started at 2300; pt appears more comfortable this time. Respiratory rate 26-32, pt volume in 330's. Will continue to monitor
[2019-08-22 23:40] LABS: BE(vivo) -3.6 mmol/L (-2 to +3); HCO3 20.9 mmol/L (22.0-26.0); PCO2 35.4 mmHg (35.0-45.0); PO2 102.1 mmHg (80.0-100.0); pH 7.389 (7.360-7.450); sO2 97.7 % (92.0-98.0)
--- NOTE | 2019-08-22 23:49 | NUR ---
ABGs in acceptable parameters post 30 min CPAP. Pt extubated at 2345 and placed on 50% humidified face shield.
[2019-08-23 00:53] LABS: BE(vivo) -3.6 mmol/L (-2 to +3); HCO3 21.6 mmol/L (22.0-26.0); PCO2 39.6 mmHg (35.0-45.0); PO2 68.6 mmHg (80.0-100.0); pH 7.354 (7.360-7.450); sO2 93.1 % (92.0-98.0)
--- NOTE | 2019-08-23 01:20 | NUR ---
Pt having dry heaves again. Had them around midnight as well. Zofran given both times.
--- NOTE | 2019-08-23 02:27 | NUR ---
0200: Pt having dry heaves again. BP low (SBP 88-94, MAP 57-63) after last nausea and pain med. CVP 8-9 cmH2O. Albumin bolus given. SBP now > 100, MAP >62, and CVP 10.
[2019-08-23 03:10] VITALS: BP 107/47
[2019-08-23 05:25] LABS: CALCIUM 7.9 mg/dL (8.5-10.1); CREATININE 2.1 mg/dL (0.6-1.0); MAGNESIUM 2.4 mg/dL (1.8-2.4); POTASSIUM 4.1 mmol/L (3.5-5.1)
[2019-08-23 05:35] LABS: HEMATOCRIT 24.2 % (37.0-47.0); HEMOGLOBIN 8.1 gm/dL (12.0-15.0); MCH 30.8 pg (26.0-34.0); MCHC 33.5 g/dL (28.0-37.0); RBC 2.63 mil/uL (4.20-5.00); WBC 10.3 thou/uL (4.0-11.0)
--- NOTE | 2019-08-23 06:25 | NUR ---
Pt had difficulty with dry heaves through most of night despite several doses of zofran IVP. Fentanyl 25 mcg IVP give x 3 for pain, which pt states did not help much however she was able to sleep for several hours during night. Blood pressure slightly labile. 250 cc Albumin 5% given x4 for CVP < 9 cmH2O and MAP < 60. Urine output for shift 383 cc. Breath sounds remain diminished throughout. Able to wean pt down to 40% humidified face shield, sat remains > 92%. Mediastinal and plural chest tubes remain patent to -20 cmH2O; 287 cc sanguinous drainage from mediastinals and 40 cc sanguinous drainage from plural. No air leaks or crepitus. Unable to get pt up to chair this a.m. due to nausea and dry heaving.
[2019-08-23 07:10] VITALS: BP 98/46
--- NOTE | 2019-08-23 08:43 | NUR ---
PATIENT ALERT AND ORIENTED, VITALS STABLE. C/O PAIN AND DRY HEAVING AND MEDICATED WITH PRN MEDS. SWAN AND ART LINE, CHEST TUBES, ROSETTE DRESSING, WILVER DRAIN ALL NOTED DOCUMENTED. WILL MONITOR CLOSELY.
--- NOTE | 2019-08-23 09:25 | NUR ---
WILVER DRAIN DC'D PER ORDER.
[2019-08-23 11:10] VITALS: BP 105/52
--- NOTE | 2019-08-23 11:25 | NUR ---
discussed during los, possible move out of icu when cardiology agreement. no anticipated dc over the weekend. will cont following as needed for dc needs.
--- NOTE | 2019-08-23 11:39 | NUR ---
SWAN LADI DC'D AND PACER WIRES CAPPED PER ORDERS. PRN COMPAZINE ADMINISTERED AND PATIENT STATES NAUSEA HAS SUBSIDED FOR NOW.
--- NOTE | 2019-08-23 19:07 | NUR ---
TABLET, CELL PHONE, DIRECTOR OF CATH LAB AND GLASSES DROPPED OFF TO PATIENT'S ROOM BY
[2019-08-23 19:10] VITALS: BP 114/54
--- NOTE | 2019-08-23 20:30 | NUR ---
Hold Lopressor PO due to BP< 110 mmHg.
[2019-08-23 20:38] VITALS: BP 105/63
[2019-08-23 20:48] VITALS: BP 113/53
[2019-08-24] VITALS (9 sets, daily range): BP systolic 86–137; BP diastolic 41–65
[2019-08-24 05:37] LABS: HEMATOCRIT 24.5 % (37.0-47.0); MCH 30.4 pg (26.0-34.0); MCHC 32.9 g/dL (28.0-37.0); MCV 92.6 fL (80.0-100.0); RBC 2.64 mil/uL (4.20-5.00); RDW 15.1 % (10.5-14.5); WBC 12.3 thou/uL (4.0-11.0)
[2019-08-24 05:39] LABS: CALCIUM 8.5 mg/dL (8.5-10.1); CREATININE 2.4 mg/dL (0.6-1.0); MAGNESIUM 2.7 mg/dL (1.8-2.4); POTASSIUM 3.8 mmol/L (3.5-5.1)
--- NOTE | 2019-08-24 06:00 | NUR ---
Pt became hypotensive after received pain med. Denies of any symtpoms. Will keep her in bed for now. Continue with IVF as orders. CTs remains inplaced. Mediastinal CTs is not meeting criteria to be removed, draining 40 cc of light serosanguneous in the past hour. Pain control is adequated, denies of any GI symptoms in this shift. Not making any progress in this shift.
--- NOTE | 2019-08-24 10:08 | NUR ---
DROWSY BUT AWAKENS EASILY AND IS ORIENTED. HYPOTENSIVE AT TIMES, DENIES DIZZINESS OR NAUSEA. UP TO THE CHAIR WITH MODERATE ASSISTANCE AND HAS WORKED WITH P.T. AT THE BEDSIDE. POOR APPETITE NOTED. CHEST TUBES, A-LINE, ROSETTE VAC, AND PACER WIRES NOTED DOCUMENTED. PROGRESSING SLOWLY TOWARDS POC GOALS.
--- NOTE | 2019-08-24 13:40 | NUR ---
PATIENT BACK IN BED AND MIDSTERNAL CTs DC'D PER ORDER AND PATIENT TOLERATED WELL. MEDICATED FOR PAIN WITH PRN MEDS THIS AFTERNOON.
[2019-08-25 04:41] VITALS: BP 110/60
[2019-08-25 05:03] LABS: ALBUMIN 2.8 g/dL (3.4-5.0); CALCIUM 8.6 mg/dL (8.5-10.1); CREATININE 1.8 mg/dL (0.6-1.0); POTASSIUM 4.2 mmol/L (3.5-5.1)
--- NOTE | 2019-08-25 05:11 | NUR ---
PATIENT ALERT AND ORIENTED X4, NO COMPLAINTS OF PAIN. PM METOPROLOL GIVEN, BLOOD PRESSURE REMAINED ABOVE 110 SYSTOLIC. PATIENT CURRENTLY ON 3L NASAL CANNULA, DESATS TO 89% WHEN ASLEEP. CHEST TUBE IN PLACE, TOTAL OUTPUT 100 ML THROUGHT THE SHIFT. AM BLOODWORK COMPLETED. PERIPHERAL IV STARTED, PATIENT REMAINS IN BED, AWAITING DR. ASHLY BLAKE TO PLACE PATIENT IN CHAIR. INCENTIVE SPIROMETER COMPLETED, PATIENT SLOWLY PROGRESSING TOWARD GOAL. WILL CONTINUE TO MONITOR.
--- NOTE | 2019-08-25 07:15 | NUR ---
Dr Vale here and removed pacemaker wires and pleural tube. Pt tolerated without incident.
[2019-08-25 14:51] VITALS: BP 120/63
--- NOTE | 2019-08-25 16:15 | NUR ---
Report given to Kamlesh Baxter RN who will be assuming care of patient and transporting her to her new room in CCU (216). Personal belongings moved to new room by Unique Iglesias RN. Pt has her cell phone with her now at time of transfer. Pt in sinus rhythm. Voided 400 ml of urine prior to transfer-first void since removal of catheter this morning.
[2019-08-25 19:53] VITALS: BP 128/59
[2019-08-26 04:32] VITALS: BP 131/51
--- NOTE | 2019-08-26 05:18 | NUR ---
ASSUMED PT CARE AROUND 1900. PT RESTING IN CHAIR WATCHING TELEVISION AND TALKING ON PHONE WITH FAMILY/FRIENDS. PT HAD NO C/O CHEST PAIN, PAIN, N/V/D, OR SOA. PT WAS CONCERNED ABOUT LEAKAGE FROM CHEST SITE. DRESSING WAS CHANGED. PT UP TO BATHROOM WITH STBY ASSIST. PT DOES INCENTIVE SPIROMETER WELL. PT INCISION SITE DRESSINGS ARE C/D/I. PT DECIDED TO SLEEP IN CHAIR THRU NIGHT AND STATED "MUCH MORE COMFORTABLE" WILL CONTINUE TO ASSESS FOR ANY CHANGES OR PAIN.
[2019-08-26 06:15] LABS: HEMOGLOBIN 8.1 gm/dL (12.0-15.0); MCH 30.7 pg (26.0-34.0); MCHC 33.7 g/dL (28.0-37.0); MCV 91.3 fL (80.0-100.0); RBC 2.63 mil/uL (4.20-5.00); RDW 15.1 % (10.5-14.5); WBC 9.9 thou/uL (4.0-11.0)
[2019-08-26 06:44] LABS: ALBUMIN 2.7 g/dL (3.4-5.0); CALCIUM 8.3 mg/dL (8.5-10.1); CREATININE 1.3 mg/dL (0.6-1.0); PHOSPHORUS 3.9 mg/dL (2.5-4.9); POTASSIUM 3.9 mmol/L (3.5-5.1)
[2019-08-26 07:30] VITALS: BP 115/51
--- NOTE | 2019-08-26 11:48 | NUR ---
Therapy evals noted recommend home with [place] care [place]. Sp with patient in room she reports no preference for home health if ordered. She reports she has a niece who is a cardiac rehab nurse. She lives with s/o in home. PCP is Dr Peyton Garcia. Faxed referral to [facility] care.
--- NOTE | 2019-08-26 14:54 | NUR ---
Nutrition: Pt seen for LOS. S/P CABG x 5. Appetite decreased since surgery but gradually coming back, yesterday consumed 25%/20%/100% of meals. Receives glucerna daily. No recent weight change other than 7# fluid increase post surgery. BMI 32, obesity class 1. Hx DM. A1C 8.9. BG 150-253. RD reviewed post heart healthy and diabetes diet providing handout. Low risk.
[2019-08-26 17:08] VITALS: BP 115/57
--- NOTE | 2019-08-26 17:47 | NUR ---
ASSESSMENT CHARTED. PT ALERT AND ORIENTED. VSS. PT REPORT HAVING STERNUM PAIN BUT REFUSED THE NEED FOR PAIN MED. UP IN THE CHAIR THIS SHIFT. HAD SHOWER THIS SHIFT. ROSETTE DRESSING INTACT. SR ON TELE. NO CONCERNS AT THIS TIME. WILL CONTINUE TO MONITOR.
[2019-08-26 19:56] VITALS: BP 136/60
[2019-08-27 04:35] VITALS: BP 99/46
[2019-08-27 06:06] LABS: ALBUMIN 2.8 g/dL (3.4-5.0); CALCIUM 8.4 mg/dL (8.5-10.1); CREATININE 1.3 mg/dL (0.6-1.0); PHOSPHORUS 4.3 mg/dL (2.5-4.9); POTASSIUM 4.1 mmol/L (3.5-5.1)
--- NOTE | 2019-08-27 06:34 | NUR ---
ASSUMED PT CARE AT 1900, PT IS A&0X4, PT IS AWAKE AND SITTING ON THE RECLAINER, COMPLAINED OF GENERALIZED PAIN, PRN MEDICATION GIVEN ORDERED, DENIES CHEST PAIN OR SOB, VSS, NO DISCOMFORT NOTED AT THIS TIME. PROGRESSING TOWARDS POC
[2019-08-27 07:32] VITALS: BP 119/56
[2019-08-27 10:58] VITALS: BP 101/50
[2019-08-27 13:04] VITALS: BP 101/50
--- NOTE | 2019-08-27 15:45 | NUR ---
Sp with care team. patient cont with 1 liter of oxygen, she was not eating well today and appeared poor endurance today. CTS not rounded at this time and RN anticipates no dc today.
[2019-08-27 16:24] VITALS: BP 128/55
--- NOTE | 2019-08-27 16:39 | NUR ---
ASSESSMENT CHARTED. PT ALERT AND ORIENTED. VSS. REPORT HAVING STERNUM PAIN WITH ACTIVITY BUT DENIED THE NEED FOR PAIN MED. UP IN THE CHAIR THIS SHIFT. AMBULATED X1 THIS AFTERNOON. ENCOURAGED TO USE IS. ROSETTE DRESSING INTACT. STERNUM PRECAUTION ENFORCED. WILL CONTINUE TO MONITOR.
[2019-08-27 20:06] VITALS: BP 129/49
[2019-08-28 00:30] VITALS: BP 118/48
[2019-08-28 04:00] VITALS: BP 115/58
--- NOTE | 2019-08-28 04:25 | NUR ---
Received pt. up in the recliner chair. Ambulated with assist around hallway at HS and tolerated well. She stated she is no longer short of breath after walking like she did earlier part of the shift. O2 at 1L with O2 sat in the upper 90's. Encouraged use of IS while awake and only got it up to 500 ml.O2 titrated off this am and tolerated well. She slept in the recliner chair all night. Denies need for pain med. Sternal incision with ROSETTE dressing CDI. Left leg with foam dressing. Abdomen has some bruising. Progressing towards care plan goals.
[2019-08-28 07:50] VITALS: BP 147/53
[2019-08-28] MEDS ORDERED: PACERONE 200 M200 M1 PO (09:03)
[2019-08-28] MEDS ORDERED: METOPROLOL SUCC50 MG PO (09:03)
[2019-08-28] MEDS ORDERED: LIPITOR40 MG PO (09:03)
[2019-08-28 11:54] VITALS: BP 140/65
[2019-08-28] MEDS ORDERED: ADULT LOW DOSE81 MG PO (12:26)
--- NOTE | 2019-08-28 13:41 | NUR ---
ASSESSMENT CHARTED. PT ALERT AND ORIENTED. VSS. DENIED HAVING PAIN OR DISCOMFORT. SEEN BY DR. CERVANTES AND DR. LIMON ORDERS GIVEN TO DISCHARGE PT TO HOME. DISCHARGE INSTRUCTIONS GIVEN TO PT. PT VERBERLISED UNDERSTANDING. ROSETTE DRESSING C/D/I.
--- NOTE | 2019-08-28 15:04 | NUR ---
patient dc home with HH. Faxed referral to [facility]. no further needs
--- NOTE | 2019-08-30 12:02 | EKG ---
[facility] [place] [address] ELECTROCARDIOGRAM REPORT Name: TITI FITCH Room #: 212-P [facility] IN M.R.#: [id number] Admission: 08/15/19 Attend Phys: Fransicogaby Ethan Jazzyedin Discharge: 08/28/19 Date of : 51 Report #: [id number] THIS REPORT FOR: cc: Peyton Garcia MD, Susan L. MD Lundgren, Craig H. MD [facility] ~ THIS REPORT FOR: //name// [facility] ED Test Date: 2019-08-15 Test Time: 03:49:04 Pat Name: TITI FITCH Department: Room: 219 Gender: F Shuffle Board Operator: VELMA : 1955 Requested By: Ajay Ruff Order Number: [id number] MD: Cb Alcaraz Measurements Intervals [place] Rate: 99 P: 50 ND: 169 QRS: 23 QRSD: 88 T: 51 QT: 342 QTc: 439 Interpretive Statements Sinus rhythm Nonspecific ST segment abnormality No previous ECG available for comparison Electronically Signed On 08-15-2019 9:13:08 CDT by Cb Alcaraz [email or web address] <ELECTRONICALLY SIGNED> By: Cb Alcaraz MD, FACC 08/15/19 0913 0349 0349 Cb Alcaraz MD, [facility] /EPI
--- NOTE | 2019-08-30 12:02 | EKG ---
[facility] [place] [address] ELECTROCARDIOGRAM REPORT Name: TITI FITCH Room #: 212-P [facility] IN M.R.#: [id number] Admission: 08/15/19 Attend Phys: Al Alamo Discharge: 08/28/19 Date of : 51 Report #: [id number] THIS REPORT FOR: cc: Peyton Garcia MD, Susan L. MD Lundgren, Craig H. MD [facility] ~ THIS REPORT FOR: //name// [facility] ED Test Date: 2019-08-15 Test Time: 03:20:45 Pat Name: TITI FITCH Department: Room: 219 Gender: F Director Of Convention Services: VELMA : 1955 Requested By: Ajay Ruff Order Number: [id number] MD: Cb Alcaraz Measurements Intervals [place] Rate: 116 P: 42 MA: 163 QRS: 15 QRSD: 86 T: 46 QT: 333 QTc: 463 Interpretive Statements Baseline artifact limits interpretation Sinus tachycardia Atrial premature complex Probable left atrial enlargement Left ventricular hypertrophy Poor septal R wave progression, possible repolarization abnormality No previous ECG available for comparison Electronically Signed On 08-15-2019 9:12:25 CDT by Cb Alcaraz [email or web address] <ELECTRONICALLY SIGNED> By: Cb Alcaraz MD, [facility] 08/15/1912 9 9 Cb Alcaraz MD, [facility] /EPI
--- NOTE | 2019-08-30 12:11 | EKG ---
[facility] [place] [address] [place] [address] ELECTROCARDIOGRAM REPORT Name: TITI FITCH Room #: 212-P [facility] IN M.R.#: [id number] Admission: 08/15/19 Attend Phys: Al Alamo Discharge: 08/28/19 Date of : 51 Report #: [id number] THIS REPORT FOR: cc: Peyton Garcia MD, Susan L. MD Lundgren, Craig H. MD [facility] ~ THIS REPORT FOR: //name// [facility] Test Date: 2019-08-19 Test Time: 07:04:19 Pat Name: TITI FITCH Department: Room: 208 P Gender: F Holter Scanning Technician: VAHE : 1955 Requested By: Cb Alcaraz Order Number: [id number] MD: Cb Alcaraz Measurements Intervals [place] Rate: 71 P: 11 ID: 179 QRS: 14 QRSD: 105 T: 120 QT: 437 QTc: 475 Interpretive Statements Sinus rhythm T wave abnormality, consider anterior ischemia Compared to ECG 08/15/2019 03:49:04 T wave abnormality is now present Electronically Signed On 08-19-2019 9:15:09 CDT by Cb Alcaraz [email or web address] <ELECTRONICALLY SIGNED> By: Cb Alcaraz MD, [facility] 08/19/19 0915 0704 0704 Cb Alcaraz MD, [facility] /EPI
--- NOTE | 2019-08-30 12:20 | EKG ---
[facility] [place] [address] ELECTROCARDIOGRAM REPORT Name: TITI FITCH Room #: 212-P [facility] IN M.R.#: [id number] Admission: 08/15/19 Attend Phys: Al Alamo Discharge: 08/28/19 Date of : 51 Report #: [id number] THIS REPORT FOR: cc: Peyton Garcia MD, Susan L. MD Lundgren, Craig H. MD [facility] ~ THIS REPORT FOR: //name// [facility] Test Date: 2019-08-22 Test Time: 15:03:16 Pat Name: TITI FITCH Department: Room: 249 Gender: F Ship Wirer: Criss GARCIA : 1955 Requested By: Laurent Person Order Number: [id number] MD: Cb Alcaraz Measurements Intervals [place] Rate: 92 P: -58 DE: 172 QRS: -45 QRSD: 140 T: 73 QT: 419 QTc: 519 Interpretive Statements Sinus rhythm RBBB and LAFB Compared to ECG 08/19/2019 07:04:19 Ectopic atrial rhythm now present Left anterior fascicular block now present Right bundle-branch block now present Electronically Signed On 08-23-2019 9:57:00 CDT by Cb Alcaraz [email or web address] <ELECTRONICALLY SIGNED> By: Cb Alcaraz MD, [facility] 08/23/19 0957 1503 1503 Cb Alcaraz MD, [facility] /EPI
--- NOTE | 2019-08-30 12:20 | EKG ---
[facility] [place] [address] ELECTROCARDIOGRAM REPORT Name: TITI FITCH Room #: 212-P [facility] IN M.R.#: [id number] Admission: 08/15/19 Attend Phys: Al Alamo Discharge: 08/28/19 Date of : 51 Report #: [id number] THIS REPORT FOR: cc: Peyton Garcia MD, Susan L. MD Lundgren,Cb Varela MD [facility] ~ THIS REPORT FOR: //name// [facility] Test Date: 2019-08-23 Test Time: 07:12:18 Pat Name: TITI FITCH Department: Room: 249 P Gender: F Hospitality Intern: VAHE : 1955 Requested By: Laurent Person Order Number: [id number] MD: Cb Alcaraz Measurements Intervals [place] Rate: 87 P: 10 DC: 157 QRS: 8 QRSD: 132 T: 56 QT: 437 QTc: 526 Interpretive Statements Sinus rhythm Right bundle branch block Inferior infarct, old Compared to ECG 08/19/2019 07:04:19 T wave abnormalities less prominent Electronically Signed On 08-23-2019 10:01:16 CDT by Cb Alcaraz [email or web address] <ELECTRONICALLY SIGNED> By: Cb Alcaraz MD, [facility] 08/23/19 1001 1 1 Cb Alcaraz MD, [facility] /EPI
--- NOTE | 2019-08-30 12:23 | EKG ---
[facility] [place] [address] ELECTROCARDIOGRAM REPORT Name: TITI FITCH Room #: 212- [facility] IN M.R.#: [id number] Admission: 08/15/19 Attend Phys: Al Alamo Discharge: 08/28/19 Date of : 51 Report #: [id number] THIS REPORT FOR: cc: Peyton Garcia MD, Susan L. MD Lundgren,Cb Varela MD [facility] ~ THIS REPORT FOR: //name// [facility] Test Date: 2019-08-26 Test Time: 07:51:42 Pat Name: TITI FITCH Department: Room: 212 Gender: F Jet Dyeing Machine Tender: VAHE : 1955 Requested By: Simone Vale Order Number: [id number] MD: Cb Alcaraz Measurements Intervals [place] Rate: 84 P: 6 NC: 171 QRS: 13 QRSD: 74 T: 103 QT: 352 QTc: 417 Interpretive Statements Sinus rhythm Nonspecific T abnormalities Compared to ECG 08/23/2019 07:12:18 Right bundle-branch block no longer present Electronically Signed On 08-26-2019 9:41:10 CDT by Cb Alcaraz [email or web address] <ELECTRONICALLY SIGNED> By: Cb Alcaraz MD, [facility] 08/26/19 0941 0751 0751 Cb Alcaraz MD, [facility] /EPI
== END 2019-08-28 13:53 | disposition home health service (06) | DRG 233 ==
LOC: ER 03:15 → 2N 05:08 → 3W 05:08 → EROBS 05:08 → 3W 06:01 → 2N 06:05 → 3W 10:53 → 2N 08-17 14:46 → ICU 08-22 13:14 → 2N 08-25 16:30 → ENTRNSPT 08-28 13:40 → 2N 08-28 13:53 → DELTRNSPT 08-28 13:57
PROVIDERS: Emergency Medicine; Hospitalist; Internal Medicine; Nurse Practitioner Family; Physician Assistant; Surgery Vascular Surgery; ADMIT Hospitalist
PROC: B2111ZZ Fluoroscopy of Multiple Coronary Arteries using Low Osmolar Contrast (ICD-10-PCS; 2019-08-19)
PROC: 4A023N7 Measurement of Cardiac Sampling and Pressure, Left Heart, Percutaneous Approach (ICD-10-PCS; 2019-08-19)
PROC: 02100Z9 Bypass Coronary Artery, One Artery from Left Internal Mammary, Open Approach (ICD-10-PCS; principal; 2019-08-22)
PROC: 06BQ4ZZ Excision of Left Saphenous Vein, Percutaneous Endoscopic Approach (ICD-10-PCS; principal; 2019-08-22)
PROC: 5A1221Z Performance of Cardiac Output, Continuous (ICD-10-PCS; principal; 2019-08-22)
PROC: 021209W Bypass Coronary Artery, Three Arteries from Aorta with Autologous Venous Tissue, Open Approach (ICD-10-PCS; principal; 2019-08-22)
DX: I21.4 Non-ST elevation (NSTEMI) myocardial infarction (principal); J96.02 Acute respiratory failure with hypercapnia; J96.01 Acute respiratory failure with hypoxia; J18.9 Pneumonia, unspecified organism; J81.0 Acute pulmonary edema; I16.1 Hypertensive emergency; N17.9 Acute kidney failure, unspecified; E87.1 Hypo-osmolality and hyponatremia; I13.0 Hypertensive heart and chronic kidney disease with heart failure and stage 1 through stage 4 chronic kidney disease, or unspecified chronic kidney disease; I50.9 Heart failure, unspecified; E78.5 Hyperlipidemia, unspecified; Z60.2 Problems related to living alone; I25.10 Atherosclerotic heart disease of native coronary artery without angina pectoris; I65.29 Occlusion and stenosis of unspecified carotid artery; E11.22 Type 2 diabetes mellitus with diabetic chronic kidney disease; N18.9 Chronic kidney disease, unspecified; I95.9 Hypotension, unspecified; Z53.9 Procedure and treatment not carried out, unspecified reason; Z88.0 Allergy status to penicillin; Z09 Encounter for follow-up examination after completed treatment for conditions other than malignant neoplasm; Z95.1 Presence of aortocoronary bypass graft; Z82.49 Family history of ischemic heart disease and other diseases of the circulatory system; Z79.82 Long term (current) use of aspirin; Z79.899 Other long term (current) drug therapy; Z20.828 Contact with and (suspected) exposure to other viral communicable diseases
CPT/HCPCS: 10078; 10081; 10879; 47000; 47001; 47002; 47297; 48888; 50010; 50249; 50409; 50456; 50498; 50668; 51301; 52131; 52259; 52287; 52314; 53327; 53358; 54118; 56455; 56524; 56525; 56526; 56527; 56528; 56531; 56534; 56668; 56760; 56898; 57093; 57116; 57167; 62110; 62950; 65003; 65020; 65047; 65090; 65120; 65135

== ENCOUNTER → 2019-09-27 | Outpatient (CLI) | payer OTHER ==
[~2019-09-27] MED LIST: ADULT LOW DOSE81 MG PO; ALLOPURINOL 30300 M1 PO; ATORVASTATIN CA20 MG PO; IRBESARTAN150 MG PO; KLOR-CON 10 ER10 MEQ PO; LIPITOR40 MG PO; METFORMIN HCL500 MG PO; METOPROLOL SUCC50 MG PO; NOVOLOG FL100 UNIT/M SUBQ; OMEPRAZOLE40 MG PO; PACERONE 200 M200 M1 PO; TOPROL XL50 MG PO; TRESIBA FL200 UNIT/1 SUBQ; TRIAMTERENE/HCT1 CA1 PO
== END ==
LOC: SJCVC 10:02
DX: R94.31 Abnormal electrocardiogram [ECG] [EKG] (principal); I25.119 Atherosclerotic heart disease of native coronary artery with unspecified angina pectoris; I48.0 Paroxysmal atrial fibrillation; I65.23 Occlusion and stenosis of bilateral carotid arteries; I10 Essential (primary) hypertension; E78.5 Hyperlipidemia, unspecified; E11.9 Type 2 diabetes mellitus without complications

== ENCOUNTER → 2019-11-27 | Outpatient (CLI) | payer OTHER | LOC: SJCVC 13:43 | PROVIDERS: ATTEND Internal Medicine | DX: R94.31 Abnormal electrocardiogram [ECG] [EKG] (principal); I25.10 Atherosclerotic heart disease of native coronary artery without angina pectoris; I48.0 Paroxysmal atrial fibrillation; I10 Essential (primary) hypertension; E78.5 Hyperlipidemia, unspecified; E11.9 Type 2 diabetes mellitus without complications; I65.23 Occlusion and stenosis of bilateral carotid arteries; Z79.899 Other long term (current) drug therapy; Z87.891 Personal history of nicotine dependence ==

== ENCOUNTER → 2019-12-04 | Outpatient (CLI) | payer OTHER ==
--- NOTE | 2019-12-09 09:09 | SLE ---
[facility] [place] [address] POLYSOMNOGRAPHY STUDY Name: TITI FITCH Room #: [facility]#: [id number] Admission: 12/04/19 Attend Phys: Cb Alcaraz MD, Discharge: Date of : 51 Report #: [id number] THIS REPORT FOR: //name// CC: CB Garcia DATE OF SERVICE: 12/04/2019 HOME SLEEP STUDY ATTENDING PHYSICIAN: Dr. Cb Alcaraz. The patient is a 64-year-old who weighs 171 pounds with a BMI of 28.5. The patient's Henderson score was 8. The patient underwent home sleep study performed at [facility]. Total recording time was 459 minutes. During the night study, the patient had no central apneas, no mixed apneas. The patient had 27 obstructive apneas and 78 hypopneas. The patient's AHI was 16 per hour with a supine AHI of 39 per hour. Nocturnal oximetry study revealed an average oxygen saturation of 93% with lowest of 75%, 39% time oxygen saturation remained less than 90%. Mean heart rate was 67 beats per minute with a maximum 82 beats per minute. IMPRESSION: 1. Moderate obstructive sleep apnea with worsening during supine sleep. Total AHI is 16 per hour with a supine AHI of 39 per hour. 2. Nocturnal hypoxia secondary to obstructive sleep apnea. RECOMMENDATIONS: 1. The patient would benefit from treatment of sleep apnea with CPAP. This can be done as an in-lab titration study versus home auto-titration study. 2. Once the patient is optimally treated with CPAP, then follow up in 4-6 weeks to assess compliance with CPAP and to document clinical improvement. 3. Weight loss to the ideal body weight is recommended. 4. Avoid DAIRY TECHNOLOGIST depressants. 5. Avoid supine sleep. 6. Cautioned regarding driving until symptoms of sleep apnea resolved with the above recommendations. <ELECTRONICALLY SIGNED> By: Ronan Tai MD 12/09/19 0909 1800 1816 Ronan Tai MD /nt
== END ==
LOC: SLEEPLAB 08:34
PROVIDERS: ATTEND Internal Medicine
DX: G47.34 Idiopathic sleep related nonobstructive alveolar hypoventilation (principal); G47.33 Obstructive sleep apnea (adult) (pediatric)

== ENCOUNTER 2020-02-23 14:58 | Emergency (ER) | payer OTHER ==
[~2020-02-23] VITALS: Ht 165.1 cm; Wt 81.7 kg
[2020-02-23] MEDS ORDERED: EDARBYCLOR 40-1 EAC1 PO (15:04)
[2020-02-23 15:48] LABS: ABSOLUTE NEUTROPHILS 5.8 thou/uL (1.4-8.2); EOSINOPHILS 1.5 % (0.0-3.0); HEMATOCRIT 37.2 % (37.0-47.0); HEMOGLOBIN 12.2 gm/dL (12.0-15.0); LYMPHOCYTES 21.9 % (24.0-44.0); MCH 29.7 pg (26.0-34.0); MCHC 32.9 g/dL (28.0-37.0); MCV 90.5 fL (80.0-100.0); MONOCYTES 8.4 % (1.0-8.0); PLATELET COUNT 188 thou/uL (150-400); POLYS 67.2 % (36.0-66.0); RBC 4.11 mil/uL (4.20-5.00); RDW 16.9 % (10.5-14.5); WBC 8.7 thou/uL (4.0-11.0)
[2020-02-23 15:55] LABS: ANION GAP 11 mmol/L (7-16); BUN 31 mg/dL (7-18); CALCIUM 9.6 mg/dL (8.5-10.1); CHLORIDE 101 mmol/L (98-107); CO2 27 mmol/L (21-32); CREATININE 1.5 mg/dL (0.6-1.0); GLUCOSE 180 mg/dL (74-106); POTASSIUM 4.4 mmol/L (3.5-5.1); SODIUM 139 mmol/L (136-145)
[2020-02-23 16:05] LABS: SGOT 29 U/L (15-37); SGPT 41 U/L (30-65); TOTAL BILIRUBIN 0.5 mg/dL (0.2-1.0); TOTAL PROTEIN 7.8 g/dL (6.4-8.2); TROPONIN-I <0.06 ng/mL (<0.06)
[2020-02-23 18:24] VITALS: BP 165/63
--- NOTE | 2020-02-24 07:26 | EKG ---
[facility] [place] [address] ELECTROCARDIOGRAM REPORT Name: TITI FITCH [id number] Admission: 02/23/20 Attend Phys: Discharge: 02/23/20 Date of : 51 Report #: [id number] THIS REPORT FOR: cc: Peyton Garcia MD, Susan L. MD Lundgren,Cb Varela MD [facility] THIS REPORT FOR: //name// [facility] ED Test Date: 2020-02-23 Test Time: 15:31:45 Pat Name: TITI FITHC Department: Room: Gender: F Plumber Pipe Fitting: : 1955 Requested By: Mickey Montaño Order Number: [id number] MD: Cb Alcaraz Measurements Intervals [place] Rate: 68 P: 1 NV: 195 QRS: 0 QRSD: 110 T: 96 QT: 407 QTc: 433 Interpretive Statements Sinus rhythm Nonspecific T wave abnormality Inferior infarct, age indeterminate Compared to ECG 08/26/2019 07:51:42 Inferior Q waves are more prominent Electronically Signed On 02-24-2020 7:26:06 CDT by Cb Alcaraz [email or web address] <ELECTRONICALLY SIGNED> By: Cb Alcaraz MD, FACC 02/24/20 0726 1531 1531 Cb Alcaraz MD, [facility] /EPI
--- NOTE | 2020-02-24 12:40 | EKG ---
[facility] [place] [address] ELECTROCARDIOGRAM REPORT Name: JODY FITCHIan Room #: [facility] [id number] Admission: 02/23/20 Attend Phys: Discharge: 02/23/20 Date of : 51 Report #: [id number] THIS REPORT FOR: cc: Peyton Garcia MD, Susan L. MD Santiago, Patrick MD [facility] ~ THIS REPORT FOR: //name// [facility] ED Test Date: 2020-02-23 Test Time: 17:34:46 Pat Name: TITI FITCH Department: Room: Gender: F Urogynaecologist: : 1955 Requested By: Mickey Montaño Order Number: [id number] MD: Paulino Clark Measurements Intervals [place] Rate: 68 P: 9 VA: 200 QRS: 0 QRSD: 82 T: 115 QT: 411 QTc: 438 Interpretive Statements Sinus rhythm LVH by voltage Nonspecific T abnrm, anterolateral leads Baseline wander in lead(s) V4 Compared to ECG 02/23/2020 15:31:45 Left ventricular hypertrophy now present T-wave abnormality no longer present Myocardial infarct finding no longer present Electronically Signed On 02-24-2020 12:40:18 CDT by Paulino Clark [email or web address] <ELECTRONICALLY SIGNED> By: Paulino Clark MD, FACC 02/24/20 1240 1734 1734 Paulino Clark MD, FAC /EPI
== END 2020-02-23 18:25 | disposition home or self-care (01) ==
LOC: ER 14:58
PROVIDERS: Emergency Medicine
DX: R07.89 Other chest pain (principal); I11.0 Hypertensive heart disease with heart failure; I50.9 Heart failure, unspecified; E11.9 Type 2 diabetes mellitus without complications; E78.5 Hyperlipidemia, unspecified; M10.9 Gout, unspecified; Z79.82 Long term (current) use of aspirin; Z79.4 Long term (current) use of insulin; Z79.899 Other long term (current) drug therapy

== ENCOUNTER → 2020-02-27 | Outpatient (CLI) | payer OTHER ==
[~2020-02-27] MED LIST changes: +EDARBYCLOR 40-1 EAC1 PO
== END ==
LOC: SJCVC 14:36
PROVIDERS: ATTEND Internal Medicine
DX: I25.10 Atherosclerotic heart disease of native coronary artery without angina pectoris (principal); I48.0 Paroxysmal atrial fibrillation; I10 Essential (primary) hypertension; E78.5 Hyperlipidemia, unspecified; I65.23 Occlusion and stenosis of bilateral carotid arteries; E11.9 Type 2 diabetes mellitus without complications; G47.33 Obstructive sleep apnea (adult) (pediatric); Z95.1 Presence of aortocoronary bypass graft; Z79.899 Other long term (current) drug therapy; Z87.891 Personal history of nicotine dependence

== ENCOUNTER → 2020-07-28 | Outpatient (CLI) | payer OTHER | LOC: SJCVC 16:18 | PROVIDERS: ATTEND Internal Medicine | DX: I25.810 Atherosclerosis of coronary artery bypass graft(s) without angina pectoris (principal); R07.82 Intercostal pain; I10 Essential (primary) hypertension; E78.5 Hyperlipidemia, unspecified; E11.9 Type 2 diabetes mellitus without complications; M10.9 Gout, unspecified; Z95.1 Presence of aortocoronary bypass graft; Z79.84 Long term (current) use of oral hypoglycemic drugs; Z79.899 Other long term (current) drug therapy; Z82.49 Family history of ischemic heart disease and other diseases of the circulatory system; Z87.891 Personal history of nicotine dependence ==

== ENCOUNTER → 2021-02-11 | Outpatient (CLI) | payer OTHER | LOC: SJCVC 11:32 | PROVIDERS: ATTEND Internal Medicine | DX: Z79.899 Other long term (current) drug therapy (principal); I25.10 Atherosclerotic heart disease of native coronary artery without angina pectoris; E11.9 Type 2 diabetes mellitus without complications; I10 Essential (primary) hypertension; M10.9 Gout, unspecified; E78.5 Hyperlipidemia, unspecified; Z88.8 Allergy status to other drugs, medicaments and biological substances; Z95.1 Presence of aortocoronary bypass graft; Z87.891 Personal history of nicotine dependence ==

== ENCOUNTER → 2021-04-29 | Outpatient (CLI) | payer OTHER | LOC: SJCVC 12:48 | PROVIDERS: ATTEND Internal Medicine | DX: R94.31 Abnormal electrocardiogram [ECG] [EKG] (principal); I25.10 Atherosclerotic heart disease of native coronary artery without angina pectoris; I10 Essential (primary) hypertension; E78.5 Hyperlipidemia, unspecified; I65.23 Occlusion and stenosis of bilateral carotid arteries; E11.9 Type 2 diabetes mellitus without complications; M10.9 Gout, unspecified; Z87.891 Personal history of nicotine dependence; Z79.82 Long term (current) use of aspirin; Z79.4 Long term (current) use of insulin; Z79.899 Other long term (current) drug therapy; Z88.1 Allergy status to other antibiotic agents; Z88.0 Allergy status to penicillin; Z88.8 Allergy status to other drugs, medicaments and biological substances; Z88.2 Allergy status to sulfonamides; Z95.1 Presence of aortocoronary bypass graft; Z82.49 Family history of ischemic heart disease and other diseases of the circulatory system ==